=== PATIENT | male | born 1995 | race Caucasian/White ===

== ENCOUNTER 2018-09-14 05:54 | Emergency (ER) | payer OTHER ==
[2018-09-14 05:58] VITALS: BP 168/104
--- NOTE | 2018-09-14 06:08 | EDPHY ---
H & P Stated Complaint: MED CLEAR FOR USP, SMALL SUPERFICIAL LACERATIONS TO HAND Time Seen by Provider: 09/14/18 06:07 HPI/ROS: HPI CHIEF COMPLAINT: Multiple superficial lacerations to hands. HISTORY OF PRESENT ILLNESS: 23-year-old male otherwise healthy no significant medical history presents emergency room multiple superficial lacerations to the dorsum of both hands. States the glass broke that he was throwing. Denies any significant injury. He is here for medical clearance for senior living. Past Medical History: Denies Past Surgical History: Denies Social History: Alcohol this evening but denies illicit drugs. Family History: Noncontributory ROS REVIEW OF SYSTEMS: 10 Systems were reviewed and negative with the exception of the elements mentioned in the history of present illness. Exam Constitutional triage nursing summary reviewed, vital signs reviewed, awake/ alert. Eyes normal conjunctivae and sclera, EOMI, PERRLA. HENT normal inspection, atraumatic, moist mucus membranes, no epistaxis, neck supple/ no meningismus, no raccoon eyes. Respiratory clear to auscultation bilaterally, normal breath sounds, no respiratory distress, no wheezing. Cardiovascular rate normal, regular rhythm, no murmur, no edema, distal pulses normal. Gastrointestinal soft, non-tender, no rebound, no guarding, normal bowel sounds, no distension, no pulsatile mass. Genitourinary no CVA tenderness. Musculoskeletal no midline vertebral tenderness, full range of motion, no calf swelling, no tenderness of extremities, no meningismus, good pulses, neurovascularly intact. Skin bilateral hands: Dorsum of both hands superficial lacerations 3rd total of 3. They do not involve any tendon or bone. There is no foreign bodies visualized. They are not deep they do not require any sutures. Neurologic awake, alert and oriented x 3, AAOx3, moves all 4 extremities equally, motor intact, sensory intact, CN II-XII intact, normal cerebellar, normal vision, normal speech. Psychiatric normal mood/affect. Heme/Lymph/Immune no lymphadenopathy. Differential Diagnosis: Includes but is not limited to in a particular order medical clearance for senior living, multiple superficial laceration/abrasion. Medical Decision Making: Plan for this patient will clean and irrigate his wounds. Will apply antibiotic dressings and Band-Aids. And then he can be medically cleared for senior living. No evidence of significant trauma to his hands or deep lacerations or tendon or bone involvement. Re-evaluation: Source: Patient - Personal History Current Tetanus/Diphtheria Vaccine: Yes Current Tetanus Diphtheria and Acellular Pertussis (TDAP): Yes - Medical/Surgical History Hx Asthma: No Hx Chronic Respiratory Disease: No Hx Diabetes: No Hx Cardiac Disease: No Hx Renal Disease: No Hx Cirrhosis: No Hx Alcoholism: No Hx HIV/AIDS: No Hx Splenectomy or Spleen Trauma: No Other PMH: DENIES - Social History Smoking Status: Never smoked Constitutional: Initial Vital Signs Temperature (C) 36.6 C 09/14/18 05:56 Heart Rate 97 09/14/18 05:56 Respiratory Rate 198 H 09/14/18 05:56 Blood Pressure 168/104 H 09/14/18 05:56 O2 Sat (%) 98 09/14/18 05:56 O2 Delivery Mode Room Air Allergies/Adverse Reactions: amoxicillin Allergy (Verified 09/14/18 05:58) Home Medications: Medication Instructions Recorded NK [No Known Home Meds] 09/14/18 Departure - Departure Disposition: Home, Routine, Self-Care Clinical Impression: Hand laceration Condition: Good Instructions: Laceration (ED) Referrals: NONE *PRIMARY CARE P,. [Primary Care Provider] - As per Instructions
== END 2018-09-14 06:18 | disposition home or self-care (01) ==
DX: S61.412A Laceration without foreign body of left hand, initial encounter (principal); S61.411A Laceration without foreign body of right hand, initial encounter; W25.XXXA Contact with sharp glass, initial encounter; Y92.9 Unspecified place or not applicable; Y93.9 Activity, unspecified; Y99.9 Unspecified external cause status